=== PATIENT | female | born 1995 | race African-American/Black ===

== ENCOUNTER → 2016-09-28 | Outpatient (CLI) | payer OTHER ==
[~2016-09-28] MED LIST: METHACHOLINE KIT (J7674) INH ONE
--- NOTE | 2016-09-28 08:55 | PFTRPT ---
Tech: Smiley SEBASTIAN RRT Age: 21 Sex: Female Race: Black Height: 63.00 Inches Weight: 146.00 Lbs BSA: 1.69 Diagnosis: R06.02 METHACHOLINE CHALLENGE REPORT: ORDERING PROVIDER: HUONG Cervantes DATE OF SERVICE: 09/28/16 INTERPRETATION: The study was of excellent technical quality. Under protocol, methacholine was administered. At a dose of 0.025 mg (0.125 CDUs), a 33% decline in the FEV1 was noted. No PC20 was calculated. Flow rates did return to baseline post bronchodilator administration. IMPRESSION: Positive methacholine challenge study. MTDD
== END ==
LOC: M CARPUL 07:43
PROVIDERS: ATTEND Nurse Practitioner Adult Health
DX: R06.02 Shortness of breath (principal)

== ENCOUNTER → 2016-10-12 | Outpatient (REF) | payer OTHER ==
[2016-10-15 10:15] LABS: D001-IgE D pteronyssinus 0.17 kU/L (Class 0/I); E001-IgE Cat Epith/Dander < 0.10 kU/L (Class 0); E005-IgE Dog Dander 0.22 kU/L (Class 0/I); G002-IgE Bermuda Grass 0.49 kU/L (Class I); G008-IgE Kentucky Bluegrass 1.57 kU/L (Class III); M002 IgE Cladosporium herbaru 0.86 kU/L (Class II); M003 IgE Aspergillus fumigatu 2.25 kU/L (Class III); M006-IgE Alternaria alternata 5.54 kU/L (Class IV); T008-IgE Elm, American 1.09 kU/L (Class II); T015-IgE Ash, White 2.02 kU/L (Class III); T041-IgE Hickory, White 0.27 kU/L (Class 0/I); W001-IgE Ragweed, Short 0.25 kU/L (Class 0/I); W009-IgE Plantain, English 0.13 kU/L (Class 0/I); W014-IgE Pigweed, Rough 0.93 kU/L (Class II); W018-IgE Sheep Sorrel 0.18 kU/L (Class 0/I)
== END ==
LOC: M LAB REF 16:59
PROVIDERS: ATTEND Nurse Practitioner Adult Health
DX: J45.40 Moderate persistent asthma, uncomplicated (principal)

== ENCOUNTER 2017-04-10 15:12 | Emergency (ER) | payer OTHER ==
[~2017-04-10] VITALS: Ht 157.5 cm; Wt 61.4 kg
[2017-04-10] MEDS ORDERED: CYCL10TA PO (17:00)
[2017-04-10 17:27] VITALS: BP 122/78
--- NOTE | 2017-04-11 07:37 | REP ---
REASON: Back pain times one month. Five views were obtained. FINDINGS: Five views of the lumbosacral spine show no acute fracture, dislocation or subluxation. The intervertebral disc spaces are symmetric and well maintained. There is no spondylolisthesis. The pedicles are intact bilaterally and there is no destructive osseous lesions. There is a T-shaped radiodensity in the pelvis consistent with an IUD. IMPRESSION: Unremarkable lumbosacral spine series. Signed by Braeden Camara DO 04/11/2017 02:07 P
== END 2017-04-10 17:31 | disposition home or self-care (01) ==
LOC: M ED 15:12
DX: M54.5 Low back pain (principal)

== ENCOUNTER 2018-11-30 15:52 | Emergency (ER) | payer OTHER ==
[~2018-11-30] VITALS: Ht 160 cm; Wt 62.1 kg
[~2018-11-30 15:52] MED LIST changes: +CYCL10TA PO; -METHACHOLINE KIT (J7674) INH ONE
[2018-11-30] MEDS ORDERED: IBUP-1114 PO (16:08)
[2018-11-30] MEDS ORDERED: STOO100C15 PO (16:08)
--- NOTE | 2018-11-30 16:53 | REP ---
Supine abdomen two views: The bowel gas pattern is normal. There is a minimal volume of fecal residue in the colon. The skeletal structures and soft tissues are otherwise unremarkable. There is body piercing jewelry over the center of the abdomen. Electronically Signed by Joseph Pereira MD 11/30/2018 04:45 P
[2018-11-30] MEDS ORDERED: PROC1AER16 PR (17:20)
[2018-11-30] MEDS ORDERED: MIRA3350 PO (17:22)
[2018-11-30] MEDS ORDERED: COLA100C5 PO (17:22)
[2018-11-30 17:27] VITALS: BP 119/77
== END 2018-11-30 17:33 | disposition home or self-care (01) ==
LOC: M ED 15:52
DX: K59.00 Constipation, unspecified (principal); K64.8 Other hemorrhoids; J45.909 Unspecified asthma, uncomplicated